=== PATIENT | female | born 1960 | race Two or more races ===

== ENCOUNTER → 2025-01-02 | Outpatient (CLI) | payer MEDICAID, SELFPAY ==
--- NOTE | 2025-01-02 10:30 | XR_ITS ---
Examination: Thyroid sonography complete TECHNIQUE: Grayscale sonographic images thyroid lobes Exam date and time: January 02, 2025 1049 hours INDICATIONS: Abnormal thyroid laboratory values on examination one week ago FINDINGS: Right thyroid 3.8 cm No solid nodules Left thyroid 3.3 cm Lower pole vascular nodule 7 x 7 x 7 mm IMPRESSION: Small lower pole left thyroid nodule
== END | disposition home or self-care (01) ==
LOC: CDIM 10:14
PROVIDERS: PCP Nurse Practitioner Primary Care; Referring Provider Nurse Practitioner Primary Care; Visit Provider Nurse Practitioner Primary Care
DX: E04.1 Nontoxic single thyroid nodule (principal)
CPT/HCPCS: 76536